=== PATIENT | female | born 1965 | race Caucasian/White ===

== ENCOUNTER 2020-02-27 15:46 | Emergency (ER) | payer OTHER ==
[~2020-02-27] VITALS: Ht 162.6 cm; Wt 75.0 kg
--- NOTE | ~2020-02-27 | OP ---
PATIENT NAME: DANIEL COLLINS MEDICAL RECORD: [id number] :61 LOCATION:D.ER ADMISSION DATE: SURGEON: AMANDA CANSECO MD DATE OF OPERATION: 02/27/2020 PREPROCEDURAL DIAGNOSIS: Difficult laceration to the right lower extremity. POSTPROCEDURAL DIAGNOSIS: Difficult laceration to the right lower extremity. PROCEDURE: Irrigation with closure done in the Emergency Department under local anesthesia. SURGEON: Amanda Canseco MD ANESTHESIA: Local. INTRAOPERATIVE COMPLICATIONS: None. SUMMARY OF PATHOLOGIC FINDINGS: This patient is a 54-year-old chronic smoker, who upon arrival to [place] on vacation slipped and fell and had a very large skin tear - full thickness skin flap of her anterior lateral aspect of her knee. Several attempts at closure were made by the ER department and they could not reapproximate this and orthopedic surgery was called in rightfully so. PROCEDURAL REPORT IN DETAIL: After explaining the consequences and reason for needing higher level of care, and the patient consented to having her leg reapproximated by myself having already been copiously I and D'd; further I&D was carried out further. Local anesthesia was made as her previous local anesthesia had worn off. At this point, a 2-0 Prolene was used in qalt-[id number]-zqh-near [place] type suture to reapproximate this very very thin skin in this chronic smoker. It did take a substantial amount of sutures to get reapproximated; however, it eventually was reapproximated. Prior to leaving the part, the patient was given tetanus. She was also given a gram of Ancef. She was also given antibiotics as well as pain medication and instructions for followup in [place] or here as they deem necessary. Sterile dressings were applied and the patient was returned back to the ER physician where she will be discharged to follow up with her primary care physician in [place], [place]. TRANSINT:[id number] Voice Confirmation ID: [id number] DOCUMENT ID: [id number] AMANDA CANSECO MD CC: [id number] DICTATION DATE: 03/01/2055 CAR SEALER: 03/01/202003 [facility] ER 02/27/[address] [address]
[2020-02-27 16:17] VITALS: Ht 162.6 cm; Wt 75.0 kg
[2020-02-27] MEDS ORDERED: NORCO 7.5-3251 EACH GT (22:35)
[2020-02-27] MEDS ORDERED: BACTRIM DS TAB1 EAC1 PO (22:35)
[2020-02-28 00:44] VITALS: BP 154/78
== END 2020-02-27 22:41 | disposition home or self-care (01) ==
LOC: D.ER 15:46
DX: S81.819A Laceration without foreign body, unspecified lower leg, initial encounter (principal); W18.30XA Fall on same level, unspecified, initial encounter